=== PATIENT | female | born 1960 | race African-American/Black ===

== ENCOUNTER → 2019-06-30 | Outpatient (REF) | payer OTHER | LOC: M LAB REF 20:16 | PROVIDERS: ATTEND Physician Assistant | DX: J02.9 Acute pharyngitis, unspecified (principal) ==

== ENCOUNTER → 2020-12-11 | Outpatient (CLI) | payer OTHER ==
--- NOTE | 2020-12-11 11:47 | REP ---
INDICATION: [id number] PAIN IN RIGHT WRIST. COMPARISON: None. TECHNIQUE: Four views of the right wrist were obtained. FINDINGS: There is a comminuted impacted fracture of the distal radius an avulsion fracture of the ulnar styloid. There is approximately 15 degree dorsal angulation of the distal fracture fragment of the radius. IMPRESSION: Comminuted impacted fracture of the distal radius with dorsal angulation, as described. There is a avulsion fracture of the ulnar styloid. <Electronically signed by Philippe Ordaz > 12/11/20 1145
== END ==
LOC: M WUC 09:34
PROVIDERS: ATTEND Physician Assistant
DX: S52.501A Unspecified fracture of the lower end of right radius, initial encounter for closed fracture (principal); S52.614A Nondisplaced fracture of right ulna styloid process, initial encounter for closed fracture; X58.XXXA Exposure to other specified factors, initial encounter; Y92.9 Unspecified place or not applicable

== ENCOUNTER → 2021-01-08 | Outpatient (CLI) | payer BC, OTHER | LOC: M WHC 09:07 | PROVIDERS: ATTEND Internal Medicine | DX: N63.23 Unspecified lump in the left breast, lower outer quadrant (principal); R92.2 Inconclusive mammogram | CPT/HCPCS: 76642; 77065; G0279 ==